=== PATIENT | female | born 1990 | race Caucasian/White ===

== ENCOUNTER → 2022-02-05 | Outpatient (CLI) | payer OTHER ==
[2022-02-06 15:11] LABS: HPV 16 Negative (Negative); HPV 18 Negative (Negative); HPV OTHER HR TYPES Negative (Negative)
== END | disposition home or self-care (01) ==
LOC: LAB 14:23 → LAB SHORT 14:23
PROVIDERS: Obstetrics & Gynecology
DX: Z01.419 Encounter for gynecological examination (general) (routine) without abnormal findings (principal)
CPT/HCPCS: 87624; G0123

== ENCOUNTER → 2022-05-23 | Outpatient (CLI) | payer OTHER ==
[2022-05-23 19:39] LABS: Protein, Urine Random 21.6 mg/dL (0.0-11.9)
[2022-05-23 19:48] LABS: Protein/Creat Ratio, Ur Random 0.2
== END | disposition home or self-care (01) ==
LOC: LAB SHORT 17:20 → LAB 17:20
PROVIDERS: Obstetrics & Gynecology
DX: E11.9 Type 2 diabetes mellitus without complications (principal)
CPT/HCPCS: 82570; 84156

== ENCOUNTER 2022-07-30 05:37 | Inpatient (IN) | payer OTHER ==
[~2022-07-30] VITALS: Ht 154.9 cm; Wt 143.2 kg
[2022-07-30 06:44] LABS: BASOPHILS ABSOLUTE AUTO 0.04 K/mm3 (0.00-0.23); BASOPHILS PERCENT AUTO 1 % (0-2); EOSINOPHILS ABSOLUTE AUTO 0.11 K/mm3 (0.00-0.68); EOSINOPHILS PERCENT AUTO 1 % (0-6); Hematocrit 36.1 % (33.0-51.0); Hemoglobin 11.3 g/dL (11.5-16.0); IMMATURE GRAN ABSOLUTE AUTO 0.02 K/mm3 (0.00-0.10); IMMATURE GRAN PERCENT AUTO 0 % (0-1); LYMPHOCYTES ABSOLUTE AUTO 1.89 K/mm3 (0.84-5.20); LYMPHOCYTES PERCENT AUTO 23 % (21-46); MONOCYTES ABSOLUTE AUTO 0.98 K/mm3 (0.16-1.47); MONOCYTES PERCENT AUTO 12 % (4-13); Mean Corpuscular HGB Conc 31.3 g/dL (31.5-36.5); Mean Corpuscular Volume 77 fL (80-100); Mean Platelet Volume 11.7 fL (9.1-12.4); NEUTROPHILS ABSOLUTE AUTO 5.19 K/mm3 (1.96-9.15); NEUTROPHILS PERCENT AUTO 63 % (41-73); Platelet Count 218 K/mm3 (150-400); RDW Coefficient Variation 14.4 % (11.7-14.2); RDW Standard Deviation 39.7 fL (35.1-46.3); White Blood Cell Count 8.23 K/mm3 (4.00-11.30)
[2022-07-30] MEDS ORDERED: METF500 PO (07:01)
[2022-07-30] MEDS ORDERED: 1/2 NS 250ml250 ML (07:01)
[2022-07-30] MEDS ORDERED: [UNRECOGNIZED DRUG - CODE] PO (07:02)
--- NOTE | 2022-07-30 08:30 | NUR ---
07/30/22 0830 Rosa Albert EPIDURAL PLACED BY DR. CASEY, COMBINED EPIDURAL AND SPINAL FOR ANESTHESIA. EPIDURAL LEFT IN PLACE FOR PROCEDURE. DELIVERY OF VIABLE MALE T 0813. [facility] AFTER DELIVERY. NO RECORD OF APGARS OR WEIGHT AT TIME OF NOTATION. PLACENTA DELIVERED MANUALLY, COMPLETE.
[2022-07-30 08:37] LABS: PCO2 Cord - Arterial 73.3 mmHg (40-50)
[2022-07-30 08:38] LABS: PO2 Cord - Arterial < 16 mmHg (16-20)
[2022-07-30 08:40] LABS: PCO2 Cord - Venous 61.5 mmHg (40-50); PO2 Cord - Venous 16.3 mmHg (28-32); pH Umbilical Cord - Venous 7.25 (7.26-7.35)
--- NOTE | 2022-07-30 14:15 | NUR ---
ASSUMED CARE. REPORT FROM FELIX HOOPER
[2022-07-31 06:01] LABS: BASOPHILS ABSOLUTE AUTO 0.04 K/mm3 (0.00-0.23); BASOPHILS PERCENT AUTO 0 % (0-2); EOSINOPHILS ABSOLUTE AUTO 0.07 K/mm3 (0.00-0.68); EOSINOPHILS PERCENT AUTO 1 % (0-6); Hematocrit 30.7 % (33.0-51.0); Hemoglobin 9.8 g/dL (11.5-16.0); IMMATURE GRAN ABSOLUTE AUTO 0.03 K/mm3 (0.00-0.10); IMMATURE GRAN PERCENT AUTO 0 % (0-1); LYMPHOCYTES ABSOLUTE AUTO 2.03 K/mm3 (0.84-5.20); LYMPHOCYTES PERCENT AUTO 19 % (21-46); MONOCYTES ABSOLUTE AUTO 1.25 K/mm3 (0.16-1.47); MONOCYTES PERCENT AUTO 12 % (4-13); Mean Corpuscular HGB 24.1 pg (26.0-34.0); Mean Corpuscular HGB Conc 31.9 g/dL (31.5-36.5); Mean Corpuscular Volume 76 fL (80-100); Mean Platelet Volume 10.8 fL (9.1-12.4); NEUTROPHILS ABSOLUTE AUTO 7.35 K/mm3 (1.96-9.15); NEUTROPHILS PERCENT AUTO 68 % (41-73); Platelet Count 212 K/mm3 (150-400); RDW Coefficient Variation 14.3 % (11.7-14.2); RDW Standard Deviation 38.4 fL (35.1-46.3); Red Blood Cell Count 4.06 M/mm3 (3.80-5.20); White Blood Cell Count 10.77 K/mm3 (4.00-11.30)
--- NOTE | 2022-07-31 11:52 | NUR ---
AGREE WITH ABOVE ASSESSMENT VANESSA WASHINGTONC
--- NOTE | 2022-08-01 08:00 | NUR ---
removed dressing off incision, shawn are intact, area is moist, put a azeem pad in place to absorb moisture, pt has a very large panus that hangs down low. pt requires standby assist and just needs to hold a hand to get to bathroom. she does need help, getting her underwear down and her new pad on and using azeem bottle due to the size of her pannus. she isnt able to reach down far enough to push her underwear down and pull up. her pannus hangs down to almost her knees.
--- NOTE | 2022-08-01 13:45 | NUR ---
to nursery to see baby in a wheelchair, pt was able to get self out of bed and sitting at bedside, RN was standby asist to bathroom only, but in bathroom RN has to pull underwear down, pull pad out. do the azeem bottle and replace pad and pull underwear up, pt is unable to do any of that at this time. pt is proud of herself for needing less help this time and last time. pt would like a shower today, unsure if she just wants to do it or wait for hubby, she is to let staff know
--- NOTE | 2022-08-01 15:30 | NUR ---
pt back to room, up to bathroom, able to walk to bathroom on own, but needs rn to pull down underwear, remove pad, replace pad, use the azeem bottle and pull underwear back up. pt is able to walk back to bed with just standby and this time was able to get herself into bed with no assistance, rn does have to put binder, on. pt reports has a plan that if baby has to go to [place], she can stay with her sister there and they will take her to the hosp in the morning and pick her up in the afternoon.
--- NOTE | 2022-08-01 15:59 | NUR ---
agree with above assessment víctor tomasc
--- NOTE | 2022-08-02 07:47 | NUR ---
PT REPORTS SHE WOULD BE OK GOING TO [facility] TODAY, SHE HAS HER SCRIPTS FILLED, BUT SHE REPORTS SHE WILL NEED HELP PUTTING HER ABD BINDER ON AND STILL NEEDS A WHEELCHAIR TO GET TO THE NURSERY. SHE IS ABLE TO USE THE RESTROOM BY HERSELF AND CAN CHANGE HER PAD. IF NOT ABLE TO GET TO NURSERY WITH OUT A WHEELCHAIR NOT SURE SHE WILL BE ABLE TO GET FOOD FROM [place]. WILL TALK TO SUPPLIER DIVERSITY DIRECTOR ABOUT MAYBE CONTINUEING A GUEST TRAY UNTIL HER IS HER TO HELP HER, TODAY IS HIS LAST DAY OF WORKING THEN HE HAS A FEW DAYS OFF TO HELP HER.
[2022-08-02] MEDS ORDERED: ROXICODONE5 MG PO (09:31)
[2022-08-02] MEDS ORDERED: IBU800 MG PO (09:31)
--- NOTE | 2022-08-02 13:30 | NUR ---
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 if she needs more pads to let us know. 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 pt is aware if she needs to leave to see her other kids for a couple hours she can, just to let us know if she is leaving, pt hasnt asked to go to the nursery, but did ask if when she is ready what she does, i told her we could help her get there, she isnt sure she can walk to the nursery yet and would still need a wheelchair ride there, pt is doing own azeem care and pad changes, encouraged to call if needs towels for a shower,
== END 2022-08-02 13:30 | disposition home or self-care (01) | DRG 786 ==
LOC: BC 05:37
PROVIDERS: ADMIT Obstetrics & Gynecology
PROC: 10D00Z1 Extraction of Products of Conception, Low, Open Approach (ICD-10-PCS; principal; 2022-07-30 07:30)
DX: O34.211 Maternal care for low transverse scar from previous cesarean delivery (principal); O24.12 Pre-existing type 2 diabetes mellitus, in childbirth; O99.214 Obesity complicating childbirth; E66.01 Morbid (severe) obesity due to excess calories; O99.03 Anemia complicating the puerperium; Z67.30 Type AB blood, Rh positive; E11.65 Type 2 diabetes mellitus with hyperglycemia; Z3A.38 38 weeks gestation of pregnancy; O36.63X0 Maternal care for excessive fetal growth, third trimester, not applicable or unspecified; Z37.0 Single live birth; Z98.890 Other specified postprocedural states; Z79.84 Long term (current) use of oral hypoglycemic drugs
CPT/HCPCS: 36415; 82803; 82947; 85025; 86850; 86900; 86901; A9270; J0330; J0456; J0690; J1885; J2370; J2704; J2916; J3010; J3360; J7050; J7120

== ENCOUNTER 2025-01-08 03:23 | Day surgery (SDC) | payer OTHER ==
[~2025-01-08 03:23] MED LIST: 1/2 NS 250ml250 ML; IBU800 MG PO; METF500 PO; ROXICODONE5 MG PO; [UNRECOGNIZED DRUG - CODE] PO
[2025-01-08] MEDS ORDERED: Lidocaine HCl 4% Cream 5 GM ONE (14:09)
== END 2025-01-08 23:00 | disposition home or self-care (01) ==
LOC: WOUND 03:23
DX: E11.622 Type 2 diabetes mellitus with other skin ulcer (principal); L97.819 Non-pressure chronic ulcer of other part of right lower leg with unspecified severity; I87.2 Venous insufficiency (chronic) (peripheral); Z88.6 Allergy status to analgesic agent
CPT/HCPCS: A6213; A9270; G0463

== ENCOUNTER 2025-01-22 01:46 | Day surgery (SDC) | payer OTHER ==
[2025-01-22] MEDS ORDERED: Lidocaine HCl 4% Cream 5 GM ONE (13:32)
== END 2025-01-22 23:00 | disposition home or self-care (01) ==
LOC: WOUND 01:46
DX: E11.622 Type 2 diabetes mellitus with other skin ulcer (principal); L97.812 Non-pressure chronic ulcer of other part of right lower leg with fat layer exposed; I87.2 Venous insufficiency (chronic) (peripheral)
CPT/HCPCS: A6213; A9270

== ENCOUNTER 2025-01-29 05:59 | Day surgery (SDC) | payer OTHER ==
[2025-01-29] MEDS ORDERED: Lidocaine HCl 4% Cream 5 GM ONE (12:25)
== END 2025-01-29 23:00 | disposition home or self-care (01) ==
LOC: WOUND 05:59
DX: E11.622 Type 2 diabetes mellitus with other skin ulcer (principal); L97.812 Non-pressure chronic ulcer of other part of right lower leg with fat layer exposed; I87.2 Venous insufficiency (chronic) (peripheral)
CPT/HCPCS: A6213; A9270

== ENCOUNTER 2025-02-12 04:17 | Day surgery (SDC) | payer OTHER ==
[2025-02-12] MEDS ORDERED: Lidocaine HCl 4% Cream 5 GM ONE (12:21)
== END 2025-02-12 23:00 | disposition home or self-care (01) ==
LOC: WOUND 04:17
DX: E11.622 Type 2 diabetes mellitus with other skin ulcer (principal); L97.812 Non-pressure chronic ulcer of other part of right lower leg with fat layer exposed; I87.2 Venous insufficiency (chronic) (peripheral)
CPT/HCPCS: A9270

== ENCOUNTER 2025-03-12 03:21 | Day surgery (SDC) | payer OTHER ==
[2025-03-12] MEDS ORDERED: Lidocaine HCl 4% Cream 5 GM ONE (12:59)
== END 2025-03-12 23:43 | disposition home or self-care (01) ==
LOC: WOUND 03:21
DX: E11.622 Type 2 diabetes mellitus with other skin ulcer (principal); L97.812 Non-pressure chronic ulcer of other part of right lower leg with fat layer exposed; I87.2 Venous insufficiency (chronic) (peripheral)
CPT/HCPCS: A9270

== ENCOUNTER 2025-04-16 10:41 | Day surgery (SDC) | payer OTHER ==
[2025-04-16] MEDS ORDERED: Lidocaine HCl 4% Cream 5 GM ONE (12:20)
== END 2025-04-16 23:00 | disposition home or self-care (01) ==
LOC: WOUND 10:41
DX: E11.622 Type 2 diabetes mellitus with other skin ulcer (principal); L97.812 Non-pressure chronic ulcer of other part of right lower leg with fat layer exposed; I87.2 Venous insufficiency (chronic) (peripheral)
CPT/HCPCS: A9270

== ENCOUNTER 2025-05-07 00:18 | Day surgery (SDC) | payer OTHER ==
[2025-05-07] MEDS ORDERED: Lidocaine HCl 4% Cream 5 GM ONE (11:26)
== END 2025-05-07 23:00 | disposition home or self-care (01) ==
LOC: WOUND 00:18
DX: E11.622 Type 2 diabetes mellitus with other skin ulcer (principal); L97.812 Non-pressure chronic ulcer of other part of right lower leg with fat layer exposed; I87.2 Venous insufficiency (chronic) (peripheral)
CPT/HCPCS: A9270

== ENCOUNTER 2025-05-14 01:02 | Day surgery (SDC) | payer OTHER ==
[2025-05-14] MEDS ORDERED: Lidocaine HCl 4% Cream 5 GM ONE (12:20)
== END 2025-05-14 23:00 | disposition home or self-care (01) ==
LOC: WOUND 01:02
DX: E11.622 Type 2 diabetes mellitus with other skin ulcer (principal); L97.812 Non-pressure chronic ulcer of other part of right lower leg with fat layer exposed; I87.2 Venous insufficiency (chronic) (peripheral)
CPT/HCPCS: A9270; G0463

== ENCOUNTER 2025-05-21 00:27 | Day surgery (SDC) | payer OTHER ==
[2025-05-21] MEDS ORDERED: Lidocaine HCl 4% Cream 5 GM ONE (12:47)
== END 2025-05-21 23:00 | disposition home or self-care (01) ==
LOC: WOUND 00:27
DX: E11.622 Type 2 diabetes mellitus with other skin ulcer (principal); L97.812 Non-pressure chronic ulcer of other part of right lower leg with fat layer exposed; I87.2 Venous insufficiency (chronic) (peripheral)
CPT/HCPCS: A9270

== ENCOUNTER 2025-05-28 02:22 | Day surgery (SDC) | payer OTHER | END 2025-05-28 23:00 | disposition home or self-care (01) | LOC: WOUND 02:22 | DX: E11.622 Type 2 diabetes mellitus with other skin ulcer (principal); L97.812 Non-pressure chronic ulcer of other part of right lower leg with fat layer exposed; I87.2 Venous insufficiency (chronic) (peripheral) | CPT/HCPCS: A9270 ==

== ENCOUNTER 2025-06-05 03:19 | Day surgery (SDC) | payer OTHER | END 2025-06-05 23:00 | disposition home or self-care (01) | LOC: WOUND 03:19 | DX: E11.622 Type 2 diabetes mellitus with other skin ulcer (principal); L97.812 Non-pressure chronic ulcer of other part of right lower leg with fat layer exposed; I87.2 Venous insufficiency (chronic) (peripheral) | CPT/HCPCS: A9270 ==

== ENCOUNTER 2025-06-09 01:18 | Day surgery (SDC) | payer OTHER | END 2025-06-09 23:00 | disposition home or self-care (01) | LOC: WOUND 01:18 | DX: E11.622 Type 2 diabetes mellitus with other skin ulcer (principal); L97.812 Non-pressure chronic ulcer of other part of right lower leg with fat layer exposed; I87.2 Venous insufficiency (chronic) (peripheral) | CPT/HCPCS: A9270 ==

== ENCOUNTER 2025-06-18 03:19 | Day surgery (SDC) | payer OTHER | END 2025-06-18 23:00 | disposition home or self-care (01) | LOC: WOUND 03:19 | DX: E11.622 Type 2 diabetes mellitus with other skin ulcer (principal); L97.812 Non-pressure chronic ulcer of other part of right lower leg with fat layer exposed; I87.2 Venous insufficiency (chronic) (peripheral) | CPT/HCPCS: A9270 ==

== ENCOUNTER 2025-06-25 06:50 | Day surgery (SDC) | payer OTHER | END 2025-06-25 23:00 | disposition home or self-care (01) | LOC: WOUND 06:50 | DX: E11.622 Type 2 diabetes mellitus with other skin ulcer (principal); L97.811 Non-pressure chronic ulcer of other part of right lower leg limited to breakdown of skin; I87.2 Venous insufficiency (chronic) (peripheral); Z87.828 Personal history of other (healed) physical injury and trauma | CPT/HCPCS: G0463 ==